=== PATIENT | male | born 1990 | race Asian ===

== ENCOUNTER 2019-02-11 13:56 | Emergency (ER) | payer OTHER ==
[~2019-02-11] VITALS: Ht 162.6 cm; Wt 81.6 kg
[2019-02-11 14:04] VITALS: Ht 162.6 cm; Wt 81.6 kg
[2019-02-11 15:56] VITALS: BP 134/79
== END 2019-02-11 15:56 | disposition home or self-care (01) ==
LOC: ED 13:56
DX: S30.0XXA Contusion of lower back and pelvis, initial encounter (principal); M54.16 Radiculopathy, lumbar region; W18.39XA Other fall on same level, initial encounter; Y93.89 Activity, other specified; Y92.89 Other specified places as the place of occurrence of the external cause; Y99.8 Other external cause status
CPT/HCPCS: 72072; J3010; J3490